=== PATIENT | female | born 1960 | race Caucasian/White ===

== ENCOUNTER 2017-06-18 15:35 | Outpatient (CLI) | payer BC ==
--- NOTE | 2017-06-21 15:33 | Mammography Report ---
DIGITAL SCREENING MAMMOGRAM: 06/18/2017 CLINICAL INDICATION: A 56-year-old with history of late childbearing for screening. COMPARISON: 09/2013, 09/2011, 03/2009 TECHNIQUE: Routine CC and MLO projections were obtained of the breasts as well as bilateral laterall y exaggerated craniocaudal views. FINDINGS: Parenchymal tissue within both breasts is heterogeneously dense, which may lower the sensi tivity of mammography; however, there are no dominant masses, suspicious microcalcifications, or seco ndary signs of malignancy. In comparison to the previous studies, there are no significant changes. ASSESSMENT: NO MAMMOGRAPHIC EVIDENCE OF MALIGNANCY. NO SIGNIFICANT INTERVAL CHANGES. RECOMMENDATION: Screening mammography is recommended annually. BIRADS category 1 - negative. STANDARD QUALIFYING STATEMENTS 1. This examination was reviewed with the aid of Computed-Aided Detection (CAD). 2. A negative or benign imaging report should not delay biopsy if clinically suspicious findings are present. Consider surgical consultation if warranted. More than 5% of cancers are not identified by i maging. 3. Dense breasts may obscure an underlying neoplasm. JOB #: [id number] EXT JOB #:[id number]
== END 2017-06-18 15:36 | disposition home or self-care (01) ==
LOC: DI.S 15:35
PROVIDERS: ATTEND Internal Medicine
DX: Z12.31 Encounter for screening mammogram for malignant neoplasm of breast (principal)
CPT/HCPCS: 77067

== ENCOUNTER 2021-09-03 12:44 | Outpatient (CLI) | payer OTHER ==
--- NOTE | 2021-09-03 16:15 | DEXA Report ---
PROCEDURE: Dexa Spine and/or Hip INDICATIONS: OSTEOPOROSIS SCREENING TECHNIQUE: Dual energy x-ray absorptiometry (DXA) was performed on a VM6 Software System. Regions measur ed are the AP Spine, femoral neck, and if needed forearm. COMPARISON: None. FINDINGS: Lumbar Spine: Bone Mineral Density 0.826 g/cm/cm,T score -3.0. Left Hip: Bone Mineral Density 0.761 g/cm/cm,T score -2.0. Left Femoral Neck: Bone Mineral Density 0.711 g/cm/cm, T score -2.4 (T score greater or equal to -1.0: NORMAL) (T score from -1.1 to -2.4: OSTEOPENIA) (T score less than or equal to -2.5 to: OSTEOPOROSIS) Impression: Osteoporosis. Patients with diagnosis of osteoporosis or osteopenia should have regular bone mineral density assess ment. For those eligible for Medicare, routine testing is allowed once every 2 years. Testing frequ ency can be increased for patients who have rapidly progressing disease or for those who are receivin g medical therapy to restore bone mass. Reviewed by: Jad Loyola MD on 09/03/2021 4:14 PM PST Approved by: Jad Loyola MD on 09/03/2021 4:14 PM PST Station ID: [id number]
== END 2021-09-03 12:45 | disposition home or self-care (01) ==
LOC: DI 12:44
PROVIDERS: ATTEND Family Medicine
DX: Z13.820 Encounter for screening for osteoporosis (principal); M81.0 Age-related osteoporosis without current pathological fracture

== ENCOUNTER 2021-09-03 12:47 | Outpatient (CLI) | payer OTHER ==
--- NOTE | 2021-09-04 10:30 | Mammography Report ---
BILATERAL DIGITAL SCREENING MAMMOGRAM 3D/2D: 09/03/2021 CLINICAL: Routine screening. Comparison is made to exams dated: 06/18/2017 mammogram, 09/29/2013 mammogram, and 10/06/2011 mammogram - [facility]. There are scattered fibroglandular elements in both breasts. There is a focal asymmetry with an indistinct margin in the right breast at 6 o'clock anterior depth. No other significant masses, calcifications, or other findings are seen in either breast. IMPRESSION: INCOMPLETE: NEEDS ADDITIONAL IMAGING EVALUATION The focal asymmetry in the right breast is indeterminate. Additional views with possible ultrasound are recommended. This exam was interpreted at Station ID: [id number]. NOTE: For mammograms, a report in lay terms will be sent to the patient. Approximately 15% of breast malignancies will not be visualized mammographically. In the management of a palpable breast mass, a negative mammogram must not discourage biopsy of a clinically suspicious lesion. Electronically Signed By: Soy Sandhu M.D., jr/angeli:09/03/2021 14:22:55 ACR BI-RADS Category 0: Incomplete 3340F PARENCHYMAL PATTERN: (A) - The breast(s) demonstrate(s) scattered fibroglandular densities. BI-RADS CATEGORY: (0) - 0 Mammo and [place] [id number] Immediate follow-up LATERALITY: (B)
== END 2021-09-03 12:48 | disposition home or self-care (01) ==
LOC: DI 12:47
PROVIDERS: ATTEND Family Medicine
DX: Z12.31 Encounter for screening mammogram for malignant neoplasm of breast (principal); R92.8 Other abnormal and inconclusive findings on diagnostic imaging of breast

== ENCOUNTER 2021-10-01 10:17 | Outpatient (CLI) | payer OTHER ==
--- NOTE | 2021-10-02 13:44 | Mammography Report ---
UNILATERAL RIGHT DIGITAL DIAGNOSTIC MAMMOGRAM 3D/2D: 10/01/2021 CLINICAL: Patient returns today to evaluate a focal asymmetry in the right breast. Comparison is made to exams dated: 09/03/2021 mammogram, 06/18/2017 mammogram, 09/29/2013 mammogram, a nd 10/06/2011 mammogram - [facility]. There are scattered fibroglandular elements i n right breast. There is a focal asymmetry with an indistinct margin in the right breast at 6 o'clock anterior depth. No other significant masses or calcifications are seen in the breast. IMPRESSION: INCOMPLETE: NEEDS ADDITIONAL IMAGING EVALUATION The focal asymmetry in the right breast is indeterminate. An ultrasound is recommended. This exam was interpreted at Station ID: [id number]. NOTE: For mammograms, a report in lay terms will be sent to the patient. Approximately 15% of breast malignancies will not be visualized mammographically. In the management of a palpable breast mass, a negative mammogram must not discourage biopsy of a clinically suspicious lesion. Electronically Signed By: Soy Sandhu M.D., jr/angeli:10/01/2021 11:13:38 ACR BI-RADS Category 0: Incomplete 3340F PARENCHYMAL PATTERN: (A) - The breast(s) demonstrate(s) scattered fibroglandular densities. BI-RADS CATEGORY: (0) - 0 Ultrasound [id number] Immediate follow-up LATERALITY: (B)
--- NOTE | 2021-10-02 13:44 | Ultrasound Report ---
LIMITED ULTRASOUND OF RIGHT BREAST: 10/01/2021 CLINICAL: Patient returns today to evaluate a focal asymmetry in the right breast. Comparison is made to exams dated: 10/01/2021 mammogram, 09/03/2021 mammogram, 06/18/2017 mammogram, mammogram, and 10/06/2011 mammogram - [facility]. Color flow and real-time ultrasound of the right breast 7 o'clock region were performed. Pierson scale images of the real-time examination were reviewed. There is a benign intramammary lymph node in the right breast at 6 o'clock anterior depth. IMPRESSION: BENIGN There is no sonographic evidence of malignancy. The intramammary lymph node in the right breast is benign. A 1 year screening mammogram is recommended. This exam was interpreted at Station ID: [id number]. Electronically Signed By: Soy Sandhu M.D., jr/angeli:10/01/2021 11:35:27 Ultrasound BI-RADS: 2 Benign BI-RADS CATEGORY: (2) - 2 RECOMMENDATION: (ANNUAL) - Recommend routine annual screening mammography. [id number] 1 year screening LATERALITY: (B)
== END 2021-10-01 10:18 | disposition home or self-care (01) ==
LOC: DI 10:17
PROVIDERS: ATTEND Family Medicine
DX: R92.8 Other abnormal and inconclusive findings on diagnostic imaging of breast (principal)

== ENCOUNTER 2022-11-25 07:47 | Outpatient (CLI) | payer OTHER ==
[2022-11-25 15:38] LABS: BASOPHILS # (AUTO) 0.1 10^3/uL (0.0-0.1); BASOPHILS % (AUTO) 1.2 %; EOSINOPHILS # (AUTO) 0.1 10^3/uL (0.0-0.7); EOSINOPHILS % (AUTO) 2.8 %; HCT - HEMATOCRIT 40.5 % (37.0-47.0); HGB - HEMOGLOBIN 13.2 g/dL (12.0-16.0); LYMPHOCYTES # (AUTO) 1.8 10^3/uL (1.5-3.5); LYMPHOCYTES % (AUTO) 36.4 %; MEAN CORPUSCULAR HEMOGLOBIN 32.3 pg (27.0-31.0); MEAN CORPUSCULAR HGB CONC 32.6 g/dL (32.0-36.0); MEAN PLATELET VOLUME 11.2 fL (7.9-10.8); MONOCYTES # (AUTO) 0.4 10^3/uL (0.0-1.0); MONOCYTES % (AUTO) 8.5 %; NEUTROPHILS # (AUTO) 2.5 10^3/uL (1.5-6.6); NEUTROPHILS % (AUTO) 50.9 %; PLT - PLATELET COUNT 295 10^3/uL (130-450); RED BLOOD COUNT 4.09 10^6/uL (4.20-5.40); RED CELL DISTRIBUTION WIDTH 12.4 % (12.0-15.0)
[2022-11-25 16:05] LABS: ALBUMIN 3.9 g/dL (3.2-5.5); ALBUMIN/GLOBULIN RATIO 1.3 (1.0-2.2); BILIRUBIN,TOTAL 0.7 mg/dL (0.2-1.0); CALCIUM 9.2 mg/dL (8.5-10.3); CREATININE 0.7 mg/dL (0.4-1.0); MAGNESIUM 2.3 mg/dL (1.7-2.8); URIC ACID 4.2 mg/dL (2.6-7.2)
[2022-11-25 16:26] LABS: THYROID STIMULATING HORMONE 1.7 uIU/mL (0.34-5.60)
[2022-11-25 16:28] LABS: FREE T4 (FREE THYROXINE) 0.62 ng/dL (0.58-1.64)
[2022-11-25 16:33] LABS: FERRITIN 80.6 ng/mL (11.0-306.8)
[2022-11-25 20:01] LABS: ESTIMATED AVERAGE GLUCOSE 111 mg/dL (70-100); HEMOGLOBIN A1c% 5.5 % (4.27-6.07)
[2022-11-26 04:09] LABS: VITAMIN D 25-HYDROXY 35.4 ng/mL (30.0-100.0)
[2022-11-26 07:10] LABS: ESTRADIOL <5.0 pg/mL (.); INSULIN 5.8 uIU/mL (2.6-24.9); PROGESTERONE 0.2 ng/mL (.); SEX HORM BINDING GLOB SERUM 68.8 nmol/L (17.3-125.0)
[2022-11-26 18:08] LABS: THYROGLOBULIN ANTIBODY <1.0 IU/mL (0.0-0.9); THYROID PEROXIDASE (TPO) AB <9 IU/mL (0-34)
[2022-12-03 00:08] LABS: REVERSE T3 SERUM <5.0 ng/dL (.)
[2022-12-03 19:07] LABS: TESTOSTERONE TOTAL LC/MS 32.2 ng/dL (7.0-40.0)
== END 2022-11-25 07:48 | disposition home or self-care (01) ==
LOC: LAB.S 07:47
PROVIDERS: ATTEND Physician Assistant
DX: E78.5 Hyperlipidemia, unspecified (principal); M81.0 Age-related osteoporosis without current pathological fracture; E55.9 Vitamin D deficiency, unspecified; R73.09 Other abnormal glucose; Z78.0 Asymptomatic menopausal state; Z13.29 Encounter for screening for other suspected endocrine disorder
CPT/HCPCS: 36415; 80053; 80061; 81599; 82306; 82542; 82670; 82728; 82777; 83036; 83090; 83525; 83721; 83735; 83876; 83880; 84144; 84270; 84403; 84439; 84443; 84481; 84482; 84550; 85025; 85385; 86376; 86800

== ENCOUNTER 2023-11-12 21:25 | Emergency (ER) | payer OTHER ==
[2023-11-12 21:47] VITALS: BP 127/71; O2SAT 98
[2023-11-12 21:55] LABS: BASOPHILS # (AUTO) 0.1 10^3/uL (0.0-0.1); BASOPHILS % (AUTO) 0.9 %; EOSINOPHILS # (AUTO) 0.2 10^3/uL (0.0-0.7); EOSINOPHILS % (AUTO) 2.9 %; HGB - HEMOGLOBIN 13.2 g/dL (12.0-16.0); LYMPHOCYTES # (AUTO) 2.8 10^3/uL (1.5-3.5); LYMPHOCYTES % (AUTO) 37.3 %; MEAN CORPUSCULAR HEMOGLOBIN 31.9 pg (27.0-31.0); MEAN CORPUSCULAR VOLUME 96.6 fL (81.0-99.0); MEAN PLATELET VOLUME 9.9 fL (7.9-10.8); MONOCYTES # (AUTO) 0.7 10^3/uL (0.0-1.0); MONOCYTES % (AUTO) 9.2 %; NEUTROPHILS # (AUTO) 3.7 10^3/uL (1.5-6.6); NEUTROPHILS % (AUTO) 49.4 %; PLT - PLATELET COUNT 298 10^3/uL (130-450); RED BLOOD COUNT 4.14 10^6/uL (4.20-5.40); RED CELL DISTRIBUTION WIDTH 12.1 % (12.0-15.0); WHITE BLOOD COUNT 7.5 x10^3/uL (4.8-10.8)
--- NOTE | 2023-11-12 22:34 | XRAY Report ---
PROCEDURE: Humerus RT INDICATIONS: bruising/pain TECHNIQUE: 2 views of the humerus were acquired. COMPARISON: None. FINDINGS: Bones: No fractures or dislocations. No suspicious bony lesions. Soft tissues: No suspicious soft tissue calcifications or masses. IMPRESSION: No acute bony abnormality. Reviewed by: Francisco Whatley MD on 11/12/2023 10:33 PM PST Approved by: Francisco Whatley MD on 11/12/2023 10:33 PM PST Station ID: [id number]
--- NOTE | 2023-11-12 22:43 | ED Physician Documentation ---
PD HPI UPPER EXT INJURY - Stated complaint Stated Complaint: RT ARM BRUISING - Chief complaint Chief Complaint: Ext Problem - History obtained from History obtained from: Patient - Additonal information Additional information: Patient is a 63-year-old female with no significant past medical history presenting for evaluation of bruising noted to the right arm since yesterday and worsening today. Patient denies any known trauma, injury or strain of the affected extremity. She also denies any significant discomfort or tenderness. This evening she noticed that the bruising had spread and there was some redness so became concerned thus presenting to the emergency department. She states that she is concerned she possibly could have bit bit by something in this arm. She has not tried anything for pain. She does not take any blood thinners. No history of bleeding disorders or platelet issues. Denies history of PE or DVT. Has not had an IV recently in that arm. No fevers, chest pain, shortness of air. Review of Systems Constitutional: denies: Fever Cardiac: denies: Chest pain / pressure Respiratory: denies: Dyspnea GI: denies: Abdominal Pain Skin: reports: Other (Bruising) PD PAST MEDICAL HISTORY - Past Medical History Past Medical History: Yes Cardiovascular: None Respiratory: None Endocrine/Autoimmune: None GI: None : None Psych: None Musculoskeletal: Osteoporosis Derm: None - Past Surgical History Past Surgical History: No - Present Medications Home Medications: Ambulatory Orders Medication Instructions Recorded Confirmed cephALEXin [Keflex] 500 mg PO Q6H #28 cap 11/12/23 - Allergies Allergies/Adverse Reactions: Allergies Allergy/AdvReac Type Severity Reaction Status Date / Time No Known Drug Allergies Allergy Verified 11/12/23 21:33 - Social History Does the pt smoke?: No Smoking Status: Never smoker Does the pt drink ETOH?: Yes Does the pt have substance abuse?: No PD ED PE NORMAL - General General: Alert and oriented X 3, No acute distress, Well developed/nourished - HEENT HEENT: Atraumatic, Moist mucous membranes, Pharynx benign - Neck Neck: Supple, no meningeal sign - Cardiac Cardiac: RRR, Strong equal pulses - Respiratory Respiratory: No respiratory distress, Clear bilaterally - Extremities Extremities: Other (Purple bruising to right upper arm with yellowed bruising more proximally and faint area of erythema streaking distally towards the forearm, no fluctuance, no warmth, no extremity swelling, normal range of motion at right elbow and no tenderness over humerus or forearm.) - Neuro Neuro: Alert and oriented X 3, No motor deficit, No sensory deficit, Normal speech Results - Vitals Vitals: Vital Signs - 24 hr 11/12/23 11/12/23 21:28 23:05 Temperature 36.4 C L Heart Rate 63 Respiratory 15 16 Rate Blood Pressure 127/71 O2 Saturation 98 Oxygen O2 Source Room air - Labs Labs: Laboratory Tests 11/12/23 11/12/23 21:52 21:52 WBC 7.5 RBC 4.14 L Hgb 13.2 Hct 40.0 MCV 96.6 MCH 31.9 H MCHC 33.0 RDW 12.1 Plt Count 298 MPV 9.9 Neut # (Auto) 3.7 Lymph # (Auto) 2.8 [place] # (Auto) 0.7 Eos # (Auto) 0.2 Baso # (Auto) 0.1 Absolute Nucleated RBC 0.00 Nucleated RBC % 0.0 D-Dimer < 200.0 L PD Medical Decision Making - ED course Complexity details: reviewed results, re-evaluated patient, d/w patient ED course: Patient presenting for evaluation of unexplained bruising to right upper extremity. Good range of motion with no bony tenderness. Distal pulses intact. No significant extremity swelling. CBC was obtained which shows normal hemoglobin and platelets. D-dimer was also obtained which is negative thus I do not feel her symptoms are related to a DVT. X-ray was obtained which I reviewed I see No fracture. There is a faint area of erythema extending distally from the bruising. There is no fluctuance to suggest an abscess. Patient expresses concerns for possibly being bit by something. There are no open wounds. Given the streak of erythema extending distally I will start her on an antibiotic For cellulitis. Patient counseled on Need for close follow-up as well as strict return precautions for any worsening symptoms. Departure - Departure Disposition: 01 Home, Self Care Clinical Impression: Superficial bruising of arm, Cellulitis of right upper arm Condition: Stable Instructions: ED Infec Skin Cellulitis Prescriptions: cephALEXin [Keflex] 500 mg PO Q6H #28 cap Comments: You were evaluated for bruising to the right arm. The bruising is a bit peculiar as there is no reported trauma and there is not significant tenderness to this area. We check some blood tests including your hemoglobin, platelet count and a marker that looks for signs of blood clots in your body and these are all within normal ranges. I also obtained an x-ray and I do not see any issues as far as a fracture. There is some areas of redness that seems to be spreading away from the body - Therefore I think it would be reasonable to start you on an antibiotic for treatment of a skin infection to see if this helps clear that up. I do not see signs of an abscess or a fluid collection that would need to be drained at this time. If you develop any worsening symptoms such as fever, increased arm pain or swelling or worsening redness then please return to the emergency department for reevaluation. I have sent your prescription to [facility] in [place]. Forms: PCP List Discharge Date/Time: 11/12/23 23:07
[2023-11-12] MEDS: cephALEXin 250 MG CAPSULE PO STA (23:00)
== END 2023-11-12 23:07 | disposition home or self-care (01) ==
LOC: ED 21:25
DX: M79.601 Pain in right arm (principal); L03.113 Cellulitis of right upper limb
CPT/HCPCS: 36415; 73060; 85025; 85379; 99283; 99284; A9270